=== PATIENT | male | born 1975 | race American Indian/Alaskan Native ===

== ENCOUNTER 2020-05-14 13:39 | Inpatient (IN) | payer SELFPAY ==
[2020-05-14 14:32] LABS: Basophils % (Auto) 0.7 % (0.0-1.8); Eosinophils # (Auto) 0.1 K/mm3 (0.0-0.4); Eosinophils % (Auto) 0.9 % (0.0-4.3); Hematocrit 42.8 % (35.5-45.6); Hemoglobin 14.7 gm/dl (11.8-15.2); Lymphocytes # (Auto) 1.8 K/mm3 (1.2-5.4); Lymphocytes % (Auto) 29.5 % (13.4-35.0); Mean Corpuscular HGB Conc 34 % (32-34); Mean Corpuscular Volume 98 fl (84-94); Monocytes # (Auto) 0.6 K/mm3 (0.0-0.8); Monocytes % (Auto) 9.8 % (0.0-7.3); Platelet Count 97 K/mm3 (140-440); Red Blood Count 4.37 M/mm3 (3.65-5.03); Red Cell Distribution Width 13.7 % (13.2-15.2)
[2020-05-14 14:44] LABS: INR 1.02 (0.87-1.13)
[2020-05-14 14:45] LABS: Partial Thromboplastin Time 25.2 Sec. (24.2-36.6)
[2020-05-14 14:50] LABS: BUN/Creatinine Ratio 12; Blood Urea Nitrogen 19 mg/dL (9-20); Calcium 9.1 mg/dL (8.4-10.2); Hemolysis Index 6
--- NOTE | 2020-05-14 15:26 | Cat Scan Report ---
CT HEAD WITHOUT CONTRAST INDICATION / CLINICAL INFORMATION: neuro deficits <6hrs or sx present upon awakening. Right-sided weakness. Right foot dragging since [place] nd. TECHNIQUE: All CT scans at this location are performed using CT dose reduction for ALARA by means of automated e xposure control. COMPARISON: None available. FINDINGS: HEMORRHAGE: No evidence of intracranial hemorrhage or extra-axial fluid collection. EXTRA-AXIAL SPACES: Cortical sulci, sylvian fissures and basilar cisterns have an unremarkable appear ance. VENTRICULAR SYSTEM: The ventricular system is of normal size and configuration. CEREBRAL PARENCHYMA: There is a small ovoid area of decreased brain parenchymal attenuation in the re gion of the left putamen which may represent a subacute small deep infarction. There is no associated hemorrhage. No other areas of abnormal brain parenchymal attenuation are identified. MIDLINE SHIFT OR HERNIATION: There is no mass effect. CEREBELLUM / BRAINSTEM: Brainstem and cerebellum have an unremarkable appearance. MIDLINE STRUCTURES:No abnormalities of the pituitary gland or pineal region are identified. INTRACRANIAL VESSELS:No abnormalities are identified on this noncontrast head CT. ORBITS: visualized portions of the orbits have an unremarkable appearance. SOFT TISSUES of HEAD: No significant abnormality. CALVARIUM: Evaluation of bone windows reveals no abnormalities. PARANASAL SINUSES / MASTOID AIR CELLS: Paranasal sinuses are free from inflammatory mucosal disease. Mastoid air cells are largely opacified secondary to mastoid effusions versus mastoiditis. IMPRESSION: 1. Evidence of small deep infarction in the left putamen. This may represent a subacute lesion. 2. Question bilateral mastoiditis. Signer Name: Dre Torres MD Signed: 05/14/2020 3:21 PM Workstation Name: [email or web address]
[2020-05-14] MEDS ORDERED: ASPIRIN 81 MG TAB CHEW PO ONE (17:16)
--- NOTE | 2020-05-14 17:35 | Emergency Department Report ---
ED Neuro Deficit HPI - General Chief Complaint: Neuro Symptoms/Deficit Stated Complaint: RIGHT SIDE NUMBNESS Time Seen by Provider: 05/14/20 16:19 Source: patient Mode of arrival: Ambulatory Limitations: No Limitations - History of Present Illness Initial Comments: Chief complaint: Headache and weakness HPI: This is a 45-year-old male without significant past medical history who presents with headache and right-sided weakness. Last week patient noticed intermittent throbbing global headache. Headache spontaneously subsided. On Tuesday night approximately 4:30 PM he noticed that he had a hard time holding his phone. His right hand and arm appeared weak. He awakened on Tuesday morning with right leg weakness. He can wiggle his toes but it is hard to lift his leg. Triage nurses noted that he was dragging his right leg while walking. No pre vious history of hypertension. No previous history of stroke. -: Sudden, days(s) (2 days ago on Tuesday) Location: right arm, right leg Presenting Symptoms: Present: Weak/Paralyzed One Side History of same: No Place: home Severity: mild Quality: weak Improves With: none Worsens With: none On Anticoagulants: No Context: sudden onset Associated Symptoms: headaches Treatments Prior to Arrival: none - Related Data Home Medications: Home Medications Medication Instructions Recorded Confirmed Last Taken No Known Home Medications [No 05/14/20 05/14/20 Unknown Reported Home Medications] Allergies/Adverse Reactions: Allergies Allergy/AdvReac Type Severity Reaction Status Date / Time No Known Allergies Allergy Unverified 05/14/20 13:43 ED Review of Systems ROS: Stated complaint: RIGHT SIDE NUMBNESS Other details as noted in HPI Comment: All other systems reviewed and negative Constitutional: denies: fever, malaise Respiratory: denies: cough, shortness of breath Cardiovascular: denies: chest pain Gastrointestinal: denies: abdominal pain, nausea, vomiting Neurological: headache, weakness. denies: numbness, paresthesias, confusion ED Past Medical Hx - Past Medical History Previous Medical History?: No - Surgical History Past Surgical History?: No - Social History Smoking Status: Never Smoker Substance Use Type: Marijuana - Medications Home Medications: Home Medications Medication Instructions Recorded Confirmed Last Taken Type No Known Home Medications [No 05/14/20 05/14/20 Unknown History Reported Home Medications] ED Neuro Physical Exam - General Limitations: No Limitations General appearance: alert, in no apparent distress Suspected Stroke: Yes - Head Head exam: Present: atraumatic, normocephalic - Eye Eye exam: Present: normal appearance - ENT ENT exam: Present: mucous membranes moist - Neck Neck exam: Present: normal inspection, full ROM - Respiratory Respiratory exam: Present: normal lung sounds bilaterally. Absent: respiratory distress - Cardiovascular Cardiovascular Exam: Present: regular rate, normal rhythm, normal heart sounds. Absent: systolic murmur, diastolic murmur, rubs, gallop - GI/Abdominal GI/Abdominal exam: Present: soft, normal bowel sounds. Absent: distended, tenderness, guarding, rebound - Rectal Rectal exam: Present: deferred - Extremities Exam Extremities exam: Present: normal inspection - Neurological Exam Neurological exam: Present: alert, oriented X3 - NIHSS Assessment Interval: Baseline 1a. Level of Consciousness: alert/keenly responsive 1b. LOC Questions: answers both correctly 1c. LOC Commands: performs tasks correctly 2. Best Gaze: normal 3. Visual: no visual loss 4. Facial Palsy: normal symmetrical movement 5b. Motor Arm Right: drift 5a. Motor Arm Left: no drift 6a. Motor Leg Left: no drift 6b. Motor Leg Right: drift 7. Limb Ataxia: absent 8. Sensory: normal 9. Best Language: no aphasia 10. Dysarthria: normal 11. Extinction/Inattention: no abnormality Total Score: 2 Stroke Severity: Minor Stroke - Psychiatric Psychiatric exam: Present: normal affect, normal mood - Skin Skin exam: Present: warm, dry, intact, normal color. Absent: rash ED Course Vital Signs 05/14/20 05/14/20 05/14/20 13:43 16:33 16:46 Temperature 98.6 F Pulse Rate 79 72 Respiratory 18 12 16 Rate Blood Pressure 231/139 Blood Pressure 238/152 [Right] O2 Sat by Pulse 96 100 100 Oximetry 05/14/20 05/14/20 05/14/20 17:00 17:16 17:28 Temperature Pulse Rate 64 73 68 Respiratory 18 14 Rate Blood Pressure 226/136 231/139 236/136 Blood Pressure [Right] O2 Sat by Pulse 98 Oximetry 05/14/20 05/14/20 05/14/20 17:30 17:46 18:00 Temperature Pulse Rate 66 65 66 Respiratory 16 20 11 L Rate Blood Pressure 227/124 226/136 229/133 Blood Pressure [Right] O2 Sat by Pulse 99 98 Oximetry 05/14/20 05/14/20 05/14/20 18:16 18:23 18:30 Temperature Pulse Rate 63 66 66 Respiratory 13 19 Rate Blood Pressure 217/122 217/122 228/123 Blood Pressure [Right] O2 Sat by Pulse 98 97 Oximetry 05/14/20 05/14/20 05/14/20 19:00 19:16 19:30 Temperature Pulse Rate 64 63 72 Respiratory 18 12 13 Rate Blood Pressure 198/121 198/121 209/137 Blood Pressure [Right] O2 Sat by Pulse 98 99 98 Oximetry 05/14/20 05/14/20 05/14/20 19:46 19:53 20:00 Temperature Pulse Rate 63 68 62 Respiratory 16 16 Rate Blood Pressure 209/137 198/120 195/111 Blood Pressure [Right] O2 Sat by Pulse 97 97 Oximetry 05/14/20 05/14/20 05/14/20 20:16 20:30 20:46 Temperature Pulse Rate 60 62 72 Respiratory 15 17 18 Rate Blood Pressure 195/111 201/112 205/118 Blood Pressure [Right] O2 Sat by Pulse 97 96 96 Oximetry 05/14/20 05/14/20 05/14/20 20:47 21:00 21:28 Temperature Pulse Rate 64 63 Respiratory 15 Rate Blood Pressure 205/118 197/113 181/114 Blood Pressure [Right] O2 Sat by Pulse 98 97 Oximetry 05/14/20 05/14/20 05/14/20 21:30 21:46 22:00 Temperature Pulse Rate Respiratory Rate Blood Pressure 184/119 184/119 182/111 Blood Pressure [Right] O2 Sat by Pulse 96 100 96 Oximetry 05/14/20 05/14/20 22:16 22:30 Temperature Pulse Rate Respiratory Rate Blood Pressure 197/113 178/101 Blood Pressure [Right] O2 Sat by Pulse 99 95 Oximetry - Lab Data Result diagrams: 05/15/20 08:33 05/15/20 08:33 Lab Results 05/14/20 05/14/20 05/14/20 Range/Units 13:58 13:58 13:58 WBC 6.1 (4.5-11.0) K/mm3 RBC 4.37 (3.65-5.03) M/mm3 Hgb 14.7 (11.8-15.2) gm/dl Hct 42.8 (35.5-45.6) % MCV 98 H (84-94) fl MCH 34 H (28-32) pg MCHC 34 (32-34) % RDW 13.7 (13.2-15.2) % Plt Count 97 L (140-440) K/mm3 Lymph % (Auto) 29.5 (13.4-35.0) % Wayne % (Auto) 9.8 H (0.0-7.3) % Eos % (Auto) 0.9 (0.0-4.3) % Baso % (Auto) 0.7 (0.0-1.8) % Lymph # (Auto) 1.8 (1.2-5.4) K/mm3 Wayne # (Auto) 0.6 (0.0-0.8) K/mm3 Eos # (Auto) 0.1 (0.0-0.4) K/mm3 Baso # (Auto) 0.0 (0.0-0.1) K/mm3 Seg Neutrophils % 59.1 (40.0-70.0) % Seg Neutrophils # 3.6 (1.8-7.7) K/mm3 PT 13.6 (12.2-14.9) Sec. INR 1.02 (0.87-1.13) APTT 25.2 (24.2-36.6) Sec. Thrombin Time (15.1-19.6) Sec. Sodium 140 (137-145) mmol/L Potassium 3.7 (3.6-5.0) mmol/L Chloride 100.9 (98-107) mmol/L Carbon Dioxide 29 (22-30) mmol/L Anion Gap 14 mmol/L BUN 19 (9-20) mg/dL Creatinine 1.6 H (0.8-1.3) mg/dL Estimated GFR 56 ml/min BUN/Creatinine Ratio 12 % Glucose 88 (75-100) mg/dL Calcium 9.1 (8.4-10.2) mg/dL Troponin T < 0.010 (0.00-0.029) ng/mL 05/14/20 Range/Units 13:58 WBC (4.5-11.0) K/mm3 RBC (3.65-5.03) M/mm3 Hgb (11.8-15.2) gm/dl Hct (35.5-45.6) % MCV (84-94) fl MCH (28-32) pg MCHC (32-34) % RDW (13.2-15.2) % Plt Count (140-440) K/mm3 Lymph % (Auto) (13.4-35.0) % Wayne % (Auto) (0.0-7.3) % Eos % (Auto) (0.0-4.3) % Baso % (Auto) (0.0-1.8) % Lymph # (Auto) (1.2-5.4) K/mm3 Wayne # (Auto) (0.0-0.8) K/mm3 Eos # (Auto) (0.0-0.4) K/mm3 Baso # (Auto) (0.0-0.1) K/mm3 Seg Neutrophils % (40.0-70.0) % Seg Neutrophils # (1.8-7.7) K/mm3 PT (12.2-14.9) Sec. INR (0.87-1.13) APTT (24.2-36.6) Sec. Thrombin Time 16.9 (15.1-19.6) Sec. Sodium (137-145) mmol/L Potassium (3.6-5.0) mmol/L Chloride (98-107) mmol/L Carbon Dioxide (22-30) mmol/L Anion Gap mmol/L BUN (9-20) mg/dL Creatinine (0.8-1.3) mg/dL Estimated GFR ml/min BUN/Creatinine Ratio % Glucose (75-100) mg/dL Calcium (8.4-10.2) mg/dL Troponin T (0.00-0.029) ng/mL - EKG Data -: EKG Interpreted by Ma EKG shows normal: sinus rhythm, axis, intervals Rate: normal Interpretation: nonspecific ST-T wave maggie, LVH 05/14/20 17:47 EKG obtained 1735 EKG interpreted by ia Normal sinus rhythm rate 60 bpm normal axis normal intervals no ST elevation positive LVH - Radiology Data Radiology results: report reviewed CT HEAD WITHOUT CONTRAST INDICATION / CLINICAL INFORMATION: neuro deficits <6hrs or sx present upon awakening. Right-sided weakness. Right foot dragging since Tuesday. TECHNIQUE: All CT scans at this location are performed using CT dose reduction for ALARA by means of automated exposure control. COMPARISON: None available. FINDINGS: HEMORRHAGE: No evidence of intracranial hemorrhage or extra-axial fluid collection. EXTRA-AXIAL SPACES: Cortical sulci, sylvian fissures and basilar cisterns have an unremarkable appearance. VENTRICULAR SYSTEM: The ventricular system is of normal size and configuration. CEREBRAL PARENCHYMA: There is a small ovoid area of decreased brain parenchymal attenuation in the region of the left putamen which may represent a subacute small deep infarction. There is no associated hemorrhage. No other areas of abnormal brain parenchymal attenuation are identified. MIDLINE SHIFT OR HERNIATION: There is no mass effect. CEREBELLUM / BRAINSTEM: Brainstem and cerebellum have an unremarkable appearance. MIDLINE STRUCTURES:No abnormalities of the pituitary gland or pineal region are identified. INTRACRANIAL VESSELS:No abnormalities are identified on this noncontrast head CT. ORBITS: visualized portions of the orbits have an unremarkable appearance. SOFT TISSUES of HEAD: No significant abnormality. CALVARIUM: Evaluation of bone windows reveals no abnormalities. PARANASAL SINUSES / MASTOID AIR CELLS: Paranasal sinuses are free from inflammatory mucosal disease. Mastoid air cells are largely opacified secondary to mastoid effusions versus mastoiditis. IMPRESSION: 1. Evidence of small deep infarction in the left putamen. This may represent a subacute lesion. 2. Question bilateral mastoiditis. CHEST 1 VIEW 5:31 PM INDICATION / CLINICAL INFORMATION: Suspected stroke. Right side weakness and headache. High blood pressure. COMPARISON: None available. FINDINGS: SUPPORT DEVICES: None. HEART / MEDIASTINUM: The heart size and pulmonary vasculature are normal. The aorta is normal in caliber. LUNGS / PLEURA: No significant pulmonary or pleural abnormality. No pneumothorax. ADDITIONAL FINDINGS: No significant additional findings. IMPRESSION: No acute findings. - Medical Decision Making Clinical impression: Acute CVA, TPA not indicated due to onset of symptoms 48 hours prior to my evaluation. Patient received aspirin. Patient will be admitted to the hospital service for further treatment evaluation. Hypertensive emergency: Addressed with IV labetalol. Critical care attestation.: If time is entered above; I have spent that time in minutes in the direct care of this critically ill patient, excluding procedure time. ED Disposition Clinical Impression: Acute CVA (cerebrovascular accident), Hypertensive emergency without congestive heart failure Disposition: OP ADMIT IP TO THIS HOSP Is pt being admited?: Yes Does the pt Need Aspirin: No Condition: Stable
--- NOTE | 2020-05-14 17:38 | XRay Report ---
CHEST 1 VIEW 5:31 PM INDICATION / CLINICAL INFORMATION: Suspected stroke. Right side weakness and headache. High blood pressure. COMPARISON: None available. FINDINGS: SUPPORT DEVICES: None. HEART / MEDIASTINUM: The heart size and pulmonary vasculature are normal. The aorta is normal in phuong jennifer. LUNGS / PLEURA: No significant pulmonary or pleural abnormality. No pneumothorax. ADDITIONAL FINDINGS: No significant additional findings. IMPRESSION: No acute findings. Signer Name: Duran Ribeiro MD Signed: 05/14/2020 5:33 PM Workstation Name: [id number]
[2020-05-14] MEDS ORDERED: hydrALAZINE 25 MG TAB PO STA (18:12)
[2020-05-14] MEDS ORDERED: LISINOPRIL 40 MG TAB PO STA (18:12)
[2020-05-14] MEDS ORDERED: hydrALAZINE 25 MG TAB ONE (18:19)
[2020-05-14] MEDS ORDERED: LISINOPRIL 20 MG TAB ONE (18:19)
[2020-05-14] MEDS ORDERED: cloNIDine 0.2 MG TAB PO ONE (20:43)
[2020-05-14] MEDS ORDERED: cloNIDine 0.2 MG TAB ONE (20:43)
[2020-05-14] MEDS ORDERED: ACETAMINOPHEN 325 MG TAB PO PRN (21:41)
[2020-05-14] MEDS ORDERED: ONDANSETRON 4 MG/2 ML INJ IV PRN (21:41)
[2020-05-14] MEDS ORDERED: oxyCODONE /ACETAMINOPHEN 5-325MG TAB PO PRN (21:41)
[2020-05-14] MEDS ORDERED: METOCLOPRAMIDE 10 MG/2 ML INJ IV PRN (21:47)
[2020-05-14] MEDS ORDERED: HYDROmorphone 1 MG/1 ML INJ IV PRN (21:47)
--- NOTE | 2020-05-14 22:13 | History and Physical Report ---
History of Present Illness Date of examination: 05/14/20 Date of admission: 05/14/20 17:49 Chief complaint: Right-sided weakness since 3 days History of present illness: 45-year-old -[place] male with no significant past medical history comes in for right-sided weakness since Tuesday night which is 3 days ago. Started on May 11 around 4:30 PM. Patient noticed that there was weakness is in right upper extremity and was not able to hold his phone. On May 12Tuesday morning patient noticed right lower extremity weakness and was dragging his foot while walking. Patient comes to the emergency room after 72 hours from the initial episode of right upper extremity weakness. Patient is not in the window for TPA. Right upper extremity and right lower extremity have persistent. Able to lift his right upper extremity and right lower extremity but has a power of 3+/5. No syncope attacks. No chest pain or palpitations. No orthopnea. - Past Medical History Previous Medical History?: No - Surgical History Past Surgical History?: No - Social History Smoking Status: Never Smoker Substance Use Type: Marijuana Family history Htn Review of Systems ROS: Stated complaint: RIGHT SIDE NUMBNESS Other details as noted in HPI Comment: All other systems reviewed and negative Constitutional: denies: fever, malaise Respiratory: denies: cough, shortness of breath Cardiovascular: denies: chest pain Gastrointestinal: denies: abdominal pain, nausea, vomiting Neurological: headache, weakness. denies: numbness, paresthesias, confusion Medications and Allergies Allergies Allergy/AdvReac Type Severity Reaction Status Date / Time No Known Allergies Allergy Unverified 05/14/20 13:43 Home Medications Medication Instructions Recorded Confirmed Last Taken Type No Known Home Medications [No 05/14/20 05/14/20 Unknown History Reported Home Medications] Exam - Constitutional Vitals: Temp Pulse Resp BP Pulse Ox 98.6 F 63 15 181/114 97 05/14/20 13:43 05/14/20 21:00 05/14/20 21:00 05/14/20 21:28 05/14/20 21:28 General appearance: Present: no acute distress, well-nourished - EENT Eyes: Present: PERRL ENT: hearing intact, clear oral mucosa - Neck Neck: Present: supple, normal ROM - Respiratory Respiratory effort: normal Respiratory: bilateral: CTA - Cardiovascular Heart rate: 78 Rhythm: regular Heart Sounds: Present: S1 & S2. Absent: rub, click - Extremities Extremities: no ischemia, pulses intact, pulses symmetrical, No edema Peripheral Pulses: within normal limits - Abdominal General gastrointestinal: Present: soft, non-tender, non-distended, normal bowel sounds Male genitourinary: Present: normal - Rectal Rectal Exam: deferred - Integumentary Integumentary: Present: clear, warm, dry - Musculoskeletal Musculoskeletal: strength equal bilaterally, right sided weakness (Right upper extremity 3/5 power and right lower extremity 4/5 power) - Psychiatric Psychiatric: appropriate mood/affect, intact judgment & insight - Neurologic Neurologic: CNII-XII intact, moves all extremities - Allied Health Allied health notes reviewed: nursing, case management HEART Score - HEART Score History: Moderately suspicious Age: 45-65 Risk factors: No known risk factors Troponin: Troponin T < 0.010 ng/mL (0.00-0.029) 05/14/20 13:58 Troponin: < normal limit - Critical Actions Critical Actions: 0-3 pts:0.9-1.7%risk of adverse cardiac event.Candidate for discharge Results - Labs CBC & Chem 7: 05/14/20 13:58 05/14/20 13:58 Labs: Laboratory Last Values WBC 6.1 K/mm3 (4.5-11.0) 05/14/20 13:58 RBC 4.37 M/mm3 (3.65-5.03) 05/14/20 13:58 Hgb 14.7 gm/dl (11.8-15.2) 05/14/20 13:58 Hct 42.8 % (35.5-45.6) 05/14/20 13:58 MCV 98 fl (84-94) H 05/14/20 13:58 MCH 34 pg (28-32) H 05/14/20 13:58 MCHC 34 % (32-34) 05/14/20 13:58 RDW 13.7 % (13.2-15.2) 05/14/20 13:58 Plt Count 97 K/mm3 (140-440) L 05/14/20 13:58 Lymph % (Auto) 29.5 % (13.4-35.0) 05/14/20 13:58 Duchesne % (Auto) 9.8 % (0.0-7.3) H 05/14/20 13:58 Eos % (Auto) 0.9 % (0.0-4.3) 05/14/20 13:58 Baso % (Auto) 0.7 % (0.0-1.8) 05/14/20 13:58 Lymph # (Auto) 1.8 K/mm3 (1.2-5.4) 05/14/20 13:58 Duc[place]ne # (Auto) 0.6 K/mm3 (0.0-0.8) 05/14/20 13:58 Eos # (Auto) 0.1 K/mm3 (0.0-0.4) 05/14/20 13:58 Baso # (Auto) 0.0 K/mm3 (0.0-0.1) 05/14/20 13:58 Seg Neutrophils % 59.1 % (40.0-70.0) 05/14/20 13:58 Seg Neutrophils # 3.6 K/mm3 (1.8-7.7) 05/14/20 13:58 PT 13.6 Sec. (12.2-14.9) 05/14/20 13:58 INR 1.02 (0.87-1.13) 05/14/20 13:58 APTT 25.2 Sec. (24.2-36.6) 05/14/20 13:58 Thrombin Time 16.9 Sec. (15.1-19.6) 05/14/20 13:58 Sodium 140 mmol/L (137-145) 05/14/20 13:58 Potassium 3.7 mmol/L (3.6-5.0) 05/14/20 13:58 Chloride 100.9 mmol/L (98-107) 05/14/20 13:58 Carbon Dioxide 29 mmol/L (22-30) 05/14/20 13:58 Anion Gap 14 mmol/L 05/14/20 13:58 BUN 19 mg/dL (9-20) 05/14/20 13:58 Creatinine 1.6 mg/dL (0.8-1.3) H 05/14/20 13:58 Estimated GFR 56 ml/min 05/14/20 13:58 BUN/Creatinine Ratio 12 % 05/14/20 13:58 Glucose 88 mg/dL (75-100) 05/14/20 13:58 Calcium 9.1 mg/dL (8.4-10.2) 05/14/20 13:58 Troponin T < 0.010 ng/mL (0.00-0.029) 05/14/20 13:58 - Imaging and Cardiology EKG: report reviewed (Sinus rhythm no acute ST-T wave changes) Assessment and Plan Advance Directives: Yes VTE prophylaxis?: Chemical (Full code) Plan of care discussed with patient/family: Yes - Patient Problems (1) Acute CVA (cerebrovascular accident) Current Visit: Yes Status: Acute Plan to address problem: CVA work-up Patient had the cerebrovascular accident over 72 hours ago. Not a TPA candidate. MRI carotid duplex scan and echocardiogram requested Neurology consult requested PT and OT to be done Patient is a good candidate for home health rehab Aspirin and Plavix initiated (2) Hypertensive emergency without congestive heart failure Current Visit: Yes Status: Acute Plan to address problem: IV hydralazine and IV labetalol as needed patient also started on valsartan 160 every 12 Coreg 12.5 every 12 and Procardia XL 60 mg every 24. Will add hydralazine if necessary. (3) Tetrahydrocannabinol (THC) dependence Current Visit: Yes Status: Acute Plan to address problem: Patient counseled to avoid THC (4) ROBERTA (acute kidney injury) Current Visit: Yes Status: Acute Plan to address problem: Secondary to vasomotor nephropathy IV fluids for now (5) DVT prophylaxis Current Visit: Yes Status: Acute Plan to address problem: On heparin and GI prophylaxis
[2020-05-14] MEDS: FAMOTIDINE 20 MG TAB PO SCH (23:19)
[2020-05-14] MEDS: HEPARIN 5,000 UNIT/1 ML VIAL SUB-Q SCH (23:19)
[2020-05-14] MEDS: D5W/0.45% NACL 1,000 ML IV SCH (23:23)
[2020-05-14] MEDS: VALSARTAN 160MG TAB PO SCH (23:23)
[2020-05-14] MEDS: NIFEdipine XL 90 MG TAB PO SCH (23:25)
[2020-05-14] MEDS: hydrALAZINE 25 MG TAB PO SCH (23:25)
[2020-05-15] MEDS: hydrALAZINE 25 MG TAB PO SCH ×3 (05:49→21:01)
[2020-05-15 09:02] LABS: Basophils # (Auto) 0.1 K/mm3 (0.0-0.1); Basophils % (Auto) 0.7 % (0.0-1.8); Eosinophils # (Auto) 0.1 K/mm3 (0.0-0.4); Eosinophils % (Auto) 0.7 % (0.0-4.3); Hematocrit 43.3 % (35.5-45.6); Hemoglobin 14.6 gm/dl (11.8-15.2); Lymphocytes # (Auto) 2.3 K/mm3 (1.2-5.4); Lymphocytes % (Auto) 31.8 % (13.4-35.0); Mean Corpuscular HGB Conc 34 % (32-34); Mean Corpuscular Volume 99 fl (84-94); Monocytes # (Auto) 0.6 K/mm3 (0.0-0.8); Monocytes % (Auto) 7.8 % (0.0-7.3); Red Blood Count 4.39 M/mm3 (3.65-5.03); Red Cell Distribution Width 14.2 % (13.2-15.2)
[2020-05-15 09:10] LABS: Platelet Count 97 K/mm3 (140-440)
[2020-05-15 10:01] LABS: Alanine Aminotransferase 11 units/L (7-56); Albumin 3.8 g/dL (3.9-5); BUN/Creatinine Ratio 11; Blood Urea Nitrogen 14 mg/dL (9-20); Chol/HDL Ratio 4.66 %; HDL Cholesterol 42 mg/dL (40-59); Hemolysis Index 27; LDL Cholesterol,Direct 135 mg/dL (50-130)
--- NOTE | 2020-05-15 11:12 | Magnetic Resonance Report ---
. MR brain wo con INDICATION / CLINICAL INFORMATION: Infarction. TECHNIQUE: Multiplanar, multisequence MR images of the brain were obtained. COMPARISON: CT head from 05/14/2020 FINDINGS: INTRACRANIAL: Restricted diffusion within the left putamen and left cooper radiata. No hemorrhage. Ve ntricular caliber is normal. No extra-axial collection. No mass. No herniation. Major intracranial v ascular flow voids are preserved. ORBITS: No significant abnormality of visualized orbits. SINUSES / MASTOIDS: Bilateral mastoid effusions.. The adenoid tonsils are prominent measuring 1.7 cm on sagittal image 13 of series 3. ADDITIONAL FINDINGS: None. IMPRESSION: 1. Small acute infarction in the left putamen and cooper radiata. 2. Prominent adenoid tonsils, correlate clinically. Bilateral mastoid effusions which are likely from eustachian duct obstruction. Signer Name: Nasir Woodall MD Signed: 05/15/2020 10:59 AM Workstation Name: [id number]
--- NOTE | 2020-05-15 13:29 | Vascular Lab Report ---
BILATERAL CAROTID DUPLEX DOPPLER ULTRASOUND HISTORY: stroke COMPARISON: None. TECHNIQUE: Garcia scale, color and spectral Doppler imaging was performed of the extracranial neck jimena dave. All stenosis measurements were obtained in comparison with the distal internal carotid artery per the SRU consensus criteria. FINDINGS: RIGHT NECK ARTERIES: CCA: Minimal homogenous plaque at the carotid bulb. ICA: No significant abnormality. ECA: No significant abnormality. Vertebral Artery: No significant abnormality. Antegrade flow. LEFT NECK ARTERIES: CCA: Minimal homogenous plaque at the carotid bulb. ICA: No significant abnormality. ECA: No significant abnormality. Vertebral Artery: No significant abnormality. Antegrade flow. CCA PSV: Right: 107 Left: 98 cm/sec ICA PSV: Right: 99 Left: 95 cm/sec ICA/CCA: Right: 0.9 Left 1.0 ADDITIONAL FINDINGS: None. IMPRESSION: 1. No significant hemodynamically significant carotid artery stenosis. Estimated stenosis at 0-50%, b ilaterally. Signer Name: Duran Lea MD Signed: 05/15/2020 1:25 PM Workstation Name: [id number]
--- NOTE | 2020-05-15 14:08 | Consultation ---
History of Present Illness Consult date: 05/15/20 Requesting physician: WE[facility] Reason for Consult: CVA Chief complaint: Right-sided weakness History of present illness: 45 yo male, ambidextrous, with no known medical problems presenting w/ acute right leg>arm weakness, preceded by an episode of a headache (past Tuesday) and an episode of right hand weakness (past Tuesday). Notes that since Tuesday he feels like his right foot fell asleep and continued weakness. Notes slight improvement in his right leg strength since Tuesday. Medications and Allergies Allergies Allergy/AdvReac Type Severity Reaction Status Date / Time No Known Allergies Allergy Unverified 05/14/20 13:43 Home Medications Medication Instructions Recorded Confirmed Last Taken Type No Known Home Medications [No 05/14/20 05/14/20 Unknown History Reported Home Medications] Active Meds: Active Medications Acetaminophen (Tylenol) 650 mg PO Q4H PRN PRN Reason: Pain MILD(1-3)/Fever >100.5/SERRA Aspirin (Aspirin) 325 mg PO QDAY [facility] Atorvastatin Calcium (Lipitor) 40 mg PO QHS [facility] Last Admin: 05/14/20 23:18 Dose: 40 mg Documented by: Clopidogrel Bisulfate (Plavix) 75 mg PO QDAY [facility] Famotidine (Pepcid) 20 mg PO BID [facility] Last Admin: 05/14/20 23:19 Dose: 20 mg Documented by: Heparin Sodium (Porcine) (Heparin) 5,000 unit SUB-Q Q12HR [facility] Last Admin: 05/14/20 23:19 Dose: 5,000 unit Documented by: Hydralazine HCl (Apresoline) 50 mg PO Q8HR [facility] Last Admin: 05/15/20 05:49 Dose: 50 mg Documented by: Hydromorphone HCl (Dilaudid) 0.5 mg IV Q3H PRN PRN Reason: Pain , Severe (7-10) Dextrose/Sodium Chloride (D5/0.45ns) 1,000 mls @ 100 mls/hr IV DIRECT [facility] Last Admin: 05/14/20 23:23 Dose: 100 mls/hr Documented by: Labetalol HCl (Labetalol) 20 mg IV Q3H PRN PRN Reason: Hypertension Metoclopramide HCl (Reglan) 10 mg IV Q6H PRN PRN Reason: Nausea And Vomiting Nifedipine (Procardia Xl) 90 mg PO QDAY@0800 [facility] Last Admin: 05/14/20 23:25 Dose: 90 mg Documented by: Ondansetron HCl (Zofran) 4 mg IV Q8H PRN PRN Reason: Nausea And Vomiting Oxycodone/Acetaminophen (Percocet 5/325) 1 tab PO Q6H PRN PRN Reason: Pain, Moderate (4-6) Sodium Chloride (Sodium Chloride Flush Syringe 10 Ml) 10 ml IV BID [facility] Last Admin: 05/14/20 23:20 Dose: 10 ml Documented by: Sodium Chloride (Sodium Chloride Flush Syringe 10 Ml) 10 ml IV PRN PRN PRN Reason: LINE FLUSH Sodium Chloride (Sodium Chloride Flush Syringe 10 Ml) 10 ml IV PRN PRN PRN Reason: LINE FLUSH Valsartan (Diovan) 160 mg PO Q12H [facility] Last Admin: 05/14/20 23:23 Dose: 160 mg Documented by: Review of Systems All systems: negative (except as per HPI;) Physical Examination - Vital Signs Vital Signs: Vital Signs Temp Pulse Resp BP Pulse Ox 98.6 F 79 18 238/152 96 05/14/20 13:43 05/14/20 13:43 05/14/20 13:43 05/14/20 13:43 05/14/20 13:43 - Additional Exam Additional Exam: Gen: nad, well-nourished; Head: normocephalic; Eyes: no gaze deviation; no ptosis; ENT: normal vocalization; CVS: warm and well-perfused; Pulm: no respiratory distress;; GI: non-distended, protuberant; Ext: no cyanosis or edema at distal extremities; Skin: no acute rash or hives at distal extremities; Heme: no pathologic bruising or ecchymosis at distal extremities; Neuro: alert, oriented to name, age, month, year, surroundings, no dysarthria, no aphasia, CN 2 - PERRL, visual [place] intact, CN 3, 4, 6 - EOMI, CN 5 - facial sensation symmetric to light touch, CN 7 - facial movement symmetric except right orolabial droop, CN 8 - hearing grossly intact, CN 9, 10 - uvula midline, CN 11 - shrug symmetric, CN 12 - tongue midline; Motor - at least 5-/5 in all exts except RUE/RLE 4/5; Sensory - light touch symmetric, Cerebellar - fnf /hts difficulty secondary to weakness on the right; fnf/hts on left is intact, Gait - deferred secondary to fall risk; NIHSS (1a.) Level of Consciousness:0 (1b.) LOC Questions:0 (1c.) LOC Commands:0 (2.) Best Gaze:0 (3.) Visual:0 (4.) Facial Palsy:1 (5a.) Motor Arm, Left:0 (5b.) Motor Arm, Right:1 (6a.) Motor Leg, Left:0 (6b.) Motor Leg, Right:1 (7.) Limb Ataxia:0 (8.) Sensory:0 (9.) Best Language:0 (10.) Dysarthria:0 (11.) Extinction and Inattention:0 NIHSS Total Score:3 Results - Laboratory Findings CBC and BMP: 05/15/20 08:33 05/15/20 08:33 Abnormal Lab Findings: Abnormal Labs 05/14/20 05/14/20 05/15/20 13:58 13:58 08:33 MCV 98 H 99 H MCH 34 H 33 H Plt Count 97 L 97 L [place] % (Auto) 9.8 H 7.8 H Potassium Creatinine 1.6 H Albumin Triglycerides LDL Cholesterol Direct 05/15/20 08:33 MCV MCH Plt Count [place] % (Auto) Potassium 3.3 L Creatinine Albumin 3.8 L Triglycerides 162 H LDL Cholesterol Direct 135 H Assessment and Plan 45 yo male with no significant medical history p/w acute onset of right leg>arm weakness with noted periventricular (cooper radiata) infarction. 1. Acute Ischemic Stroke - Aspirin 325 mg po qday; Plavix 75 mg po qday x 21 days; statin therapy for a goal LDL of 70; EF of 50-54%; recommend hypercoaguable state, ldl, a1c, tsh/t4, esr, crp; cta head w/ wo contrast. 2. Right Hemiparesis - pt/ot evaluation/monitoring. 3. Dyslipidemia - ldl of 135; goal ldl of 70 w/ statin therapy/diet/exercise. 4. Unsteady gait - pt/ot evaluation/monitoring. 5. Followup with Hematology for results of hypercoag panel in 1-2 weeks and with Neurology stroke in 4 weeks. Gerber Ribeiro MD Neurology
[2020-05-15] MEDS: CLOPIDOGREL 75 MG TAB PO SCH (16:13)
[2020-05-15] MEDS: VALSARTAN 160MG TAB PO SCH (16:13)
[2020-05-15] MEDS: NIFEdipine XL 90 MG TAB PO SCH (16:13)
[2020-05-15] MEDS: FAMOTIDINE 20 MG TAB PO SCH ×2 (16:14→21:01)
[2020-05-15] MEDS: HEPARIN 5,000 UNIT/1 ML VIAL SUB-Q SCH ×2 (16:14→21:02)
[2020-05-15] MEDS: ASPIRIN 325 MG TAB PO SCH (16:14)
[2020-05-15] MEDS: D5W/0.45% NACL 1,000 ML IV SCH (18:53)
--- NOTE | 2020-05-15 22:58 | Progress Note ---
Assessment and Plan - Patient Problems (1) Acute CVA (cerebrovascular accident) Current Visit: Yes Status: Acute Plan to address problem: CVA work-up Patient had the cerebrovascular accident over 72 hours ago. Not a TPA candidate. MRI carotid duplex scan and echocardiogram requested Neurology consult requested PT and OT to be done Patient is a good candidate for home health rehab Aspirin and Plavix initiated (2) Hypertensive emergency without congestive heart failure Current Visit: Yes Status: Acute Plan to address problem: IV hydralazine and IV labetalol as needed patient also started on valsartan 160 every 12 Coreg 12.5 every 12 and Procardia XL 60 mg every 24. Will add hydralazine if necessary. (3) Tetrahydrocannabinol (THC) dependence Current Visit: Yes Status: Acute Plan to address problem: Patient counseled to avoid THC (4) ROBERTA (acute kidney injury) Current Visit: Yes Status: Acute Plan to address problem: Secondary to vasomotor nephropathy IV fluids for now (5) DVT prophylaxis Current Visit: Yes Status: Acute Plan to address problem: On heparin and GI prophylaxis Subjective Date of service: 05/15/20 Principal diagnosis: Acute CVA Interval history: 45 yo male, ambidextrous, with no known medical problems presenting w/ acute right leg>arm weakness, preceded by an episode of a headache (past Tuesday) and an episode of right hand weakness (past Tuesday). Notes that since Tuesday he feels like his right foot fell asleep and continued weakness. Notes slight improvement in his right leg strength since Tuesday. Objective - Constitutional Vitals: Vital Signs - 12hr 05/15/20 05/15/20 05/15/20 11:00 15:51 16:12 Temperature Pulse Rate 85 86 Respiratory Rate Blood Pressure 208/116 208/116 O2 Sat by Pulse 99 Oximetry 05/15/20 05/15/20 05/15/20 16:13 20:05 20:50 Temperature 98.3 F Pulse Rate 77 Respiratory 16 Rate Blood Pressure 208/116 189/100 190/117 O2 Sat by Pulse 98 Oximetry 05/15/20 21:01 Temperature Pulse Rate Respiratory Rate Blood Pressure 190/117 O2 Sat by Pulse Oximetry General appearance: Present: no acute distress, well-nourished - EENT Eyes: PERRL, EOM intact ENT: hearing intact, clear oral mucosa Ears: bilateral: normal - Neck Neck: supple, normal ROM - Respiratory Respiratory effort: normal Respiratory: bilateral: CTA - Breasts Breasts: normal - Cardiovascular Heart rate: 78 Rhythm: regular Heart Sounds: Present: S1 & S2. Absent: gallop, rub Extremities: pulses intact, No edema, normal color, Full ROM - Gastrointestinal General gastrointestinal: Present: soft, non-tender, non-distended, normal bowel sounds - Genitourinary Male genitourinary: normal - Integumentary Integumentary: clear, warm, dry - Musculoskeletal Musculoskeletal: right sided weakness - Neurologic Neurologic: focal deficits, moves all extremities (Rt side 3/5 power) - Psychiatric Psychiatric: memory intact, appropriate mood/affect, intact judgment & insight - Allied health notes Allied health notes reviewed: nursing, case management - Labs CBC & Chem 7: 05/15/20 08:33 05/15/20 08:33 Labs: Abnormal lab results 05/15/20 05/15/20 Range/Units 08:33 08:33 MCV 99 H (84-94) fl MCH 33 H (28-32) pg Plt Count 97 L (140-440) K/mm3 [place] % (Auto) 7.8 H (0.0-7.3) % Potassium 3.3 L (3.6-5.0) mmol/L Albumin 3.8 L (3.9-5) g/dL Triglycerides 162 H (2-149) mg/dL LDL Cholesterol Direct 135 H (50-130) mg/dL HEART Score - HEART Score Age: 45-65 Risk factors: No known risk factors Troponin: Troponin T < 0.010 ng/mL (0.00-0.029) 05/14/20 13:58 Troponin: < normal limit - Critical Actions Critical Actions: 0-3 pts:0.9-1.7%risk of adverse cardiac event.Candidate for discharge
[2020-05-16] MEDS ORDERED: cloNIDine 0.1 MG TAB PO ONE ×2 (00:30→03:44)
[2020-05-16] MEDS: VALSARTAN 160MG TAB PO SCH ×3 (01:38→22:18)
[2020-05-16] MEDS: D5W/0.45% NACL 1,000 ML IV SCH ×2 (04:07→13:49)
[2020-05-16] MEDS: hydrALAZINE 25 MG TAB PO SCH ×4 (06:05→22:11)
[2020-05-16] MEDS: NIFEdipine XL 90 MG TAB PO SCH (09:12)
[2020-05-16] MEDS: CLOPIDOGREL 75 MG TAB PO SCH (09:12)
[2020-05-16] MEDS: ASPIRIN 325 MG TAB PO SCH (09:12)
[2020-05-16] MEDS: HEPARIN 5,000 UNIT/1 ML VIAL SUB-Q SCH ×2 (09:12→22:19)
[2020-05-16] MEDS: FAMOTIDINE 20 MG TAB PO SCH ×2 (09:12→22:19)
--- NOTE | 2020-05-16 16:22 | Discharge Summary ---
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 Hospital course: Patient presented with some dysphagia and right-sided weakness. Weakness resolved and patient only had weakness in the right foot. Mostly numbness in the right foot. Patient was alert oriented at all times. Good strength except for some weakness with dorsiflexion of right foot. Patient had MRI which showed small infarct in cooper radiata. Patient was educated smoking cessation, weight loss diet and modifications as mentioned aspirin and statin for stroke prevention and will have home health and PT set up. Disposition: DC-01 TO HOME OR SELFCARE - Discharge Diagnoses (1) ROBERTA (acute kidney injury) Status: Acute Comment: Resolved secondary to prerenal azotemia. (2) Acute CVA (cerebrovascular accident) Status: Acute Comment: Acute CVA cooper radiata some numbness of the right foot. Patient able to ambulate doing well take care of himself. Patient able to make needs known. Prepare meals if need be. Will need assistance with strengthening of plantarflexion and dorsiflexion right foot. Educated on not to drive and no work until cleared by neurologist. (3) Hypertensive emergency without congestive heart failure Status: Acute Comment: Uncontrolled hypertension. Will add hydralazine. follow with home health PT in a.m. Patient told to follow-up with my office on Tuesday. Patient started on labetalol 200 mg twice daily, valsartan 160 twice daily Procardia 90 mg as well as clonidine. Core Measure Documentation - Palliative Care Palliative Care/ Comfort Measures: Not Applicable - Core Measures Any of the following diagnoses?: stroke - Stroke Discharge Requirements Statin for LDL = or >70 mg/dl on DC: Yes Anticoag for atrial fib/atrial flutter: No Reason for no anticoag for AF/F on DC: Not Indicated Antithrombotic for ischemic stroke: Yes Exam - Constitutional Vitals: Temp Pulse Resp BP Pulse Ox 98.6 F 78 18 177/101 98 05/16/20 16:11 05/16/20 16:11 05/16/20 16:11 05/16/20 16:11 05/16/20 16:11 General appearance: Present: no acute distress, well-nourished - EENT Eyes: Present: PERRL ENT: hearing intact, clear oral mucosa - Neck Neck: Present: supple, normal ROM - Respiratory Respiratory effort: normal Respiratory: bilateral: CTA - Cardiovascular Heart Sounds: Present: S1 & S2. Absent: rub, click - Extremities Extremities: pulses symmetrical, No edema Extremity abnormal: other (Decreased dorsiflexion and plantarflexion right foot. At ankle. Otherwise unremarkable.) Peripheral Pulses: within normal limits - Abdominal General gastrointestinal: Present: soft, non-tender, non-distended, normal bowel sounds Male genitourinary: Present: normal - Integumentary Integumentary: Present: clear, warm, dry - Musculoskeletal Musculoskeletal: gait normal, strength equal bilaterally - Psychiatric Psychiatric: appropriate mood/affect, intact judgment & insight - Neurologic Neurologic: CNII-XII intact, moves all extremities Plan Activity: fall precautions Weight Bearing Status: Weight Bear as Tolerated Diet: low salt, low carbohydrate Follow up with: PRIMARY CARE, [Primary Care Provider] - 3-5 Days Prescriptions: hydrALAZINE [Apresoline TAB] 100 mg PO TID #90 tab Aspirin 325 mg PO QDAY #30 tablet Valsartan [Diovan] 160 mg PO Q12H #60 tablet labetaloL [Labetalol 200mg TAB] 200 mg PO BID #60 tablet AtorvaSTATin [Lipitor] 40 mg PO QHS #30 tablet Famotidine [Pepcid] 20 mg PO BID #60 tablet Clopidogrel [Plavix] 75 mg PO QDAY #30 tablet NIFEdipine XL [Procardia Xl] 90 mg PO QDAY@0800 #30 tablet
[2020-05-16] MEDS ORDERED: cloNIDine 0.2 MG TAB PO ONE (18:00)
[2020-05-16] MEDS: hydrALAZINE 100 MG TAB PO SCH (20:29)
[2020-05-17] MEDS: hydrALAZINE 25 MG TAB PO SCH (06:07)
[2020-05-17] MEDS: FAMOTIDINE 20 MG TAB PO SCH (10:12)
[2020-05-17] MEDS: NIFEdipine XL 90 MG TAB PO SCH (10:12)
[2020-05-17] MEDS: ASPIRIN 325 MG TAB PO SCH (10:13)
[2020-05-17] MEDS: CLOPIDOGREL 75 MG TAB PO SCH (10:13)
[2020-05-17] MEDS: VALSARTAN 160MG TAB PO SCH (10:13)
[2020-05-17] MEDS: HEPARIN 5,000 UNIT/1 ML VIAL SUB-Q SCH (10:15)
[2020-05-17] MEDS: hydrALAZINE 100 MG TAB PO SCH ×2 (10:15→13:13)
[2020-05-17 15:48] VITALS: BP 140/80
== END 2020-05-17 17:30 | disposition home or self-care (01) | DRG 64 ==
LOC: ED 13:39 → 4A 17:49 → OBSVTOIN 21:41
PROVIDERS: ADMIT Internal Medicine; ATTEND Internal Medicine
DX: I63.9 Cerebral infarction, unspecified (principal); N17.0 Acute kidney failure with tubular necrosis; I16.1 Hypertensive emergency; G81.91 Hemiplegia, unspecified affecting right dominant side; E78.5 Hyperlipidemia, unspecified; R26.81 Unsteadiness on feet; R79.89 Other specified abnormal findings of blood chemistry
CPT/HCPCS: 36415; 70450; 70551; 71045; 80048; 80053; 80061; 82962; 83036; 84484; 85025; 85610; 85670; 85730; 90471; 93005; 93306; 93880; 96361; 96367; 96375; G0378; A9270-GY; J1644